=== PATIENT | male | born 1980 | race African-American/Black ===

== ENCOUNTER 2017-08-18 10:08 | Emergency (ER) | payer SELFPAY ==
[~2017-08-18] VITALS: Ht 182.9 cm; Wt 75.0 kg
[2017-08-18 10:11] VITALS: BP 122/62; PULSE 78; RESP 14; TEMP 98.4; O2SAT 99
[2017-08-18] MEDS ORDERED: BACT800T5 PO (10:39)
--- NOTE | 2017-08-18 10:46 | PD ---
HPI Chief Complaint: Injury Time Seen by Provider: 10:26 Travel History International Travel<30 days: No Contact w/Intl Traveler<30days: No Traveled to known affect area: No History of Present Illness HPI This patient complains of a infected area on the top of his left foot. Duration 3 days. Severity is moderate. He denies fever. No alleviating factors. PFSH Past Medical History Hx Anticoagulant Therapy: No Cardiovascular Problems: No Chemotherapy: No Cerebrovascular Accident: No Diabetes: No Diminished Hearing: No Respiratory: No Social History Alcohol Use: No Tobacco Use: Yes Substance Use: No Allergies-Medications (Allergen,Severity, Reaction): Coded Allergies: grapefruit (Unverified Allergy, Severe, JUICE CASES RASH, 07/03/17) Reported Meds & Prescriptions Reported Meds & Active Scripts Active Bactrim DS (Sulfamethoxazole-Trimethoprim) 800-160 Mg Tab 1 Tab PO BID Review of Systems General / Constitutional: No: Fever HENT: No: Headaches Cardiovascular: No: Chest Pain or Discomfort Respiratory: No: Cough Physical Exam Narrative SKIN: Focused skin assessment reveals no rash or ulcers. Skin is warm and dry. Palpation shows no induration or nodules. Psych: Normal mood and affect. Normal insight and judgment. Left foot: On the dorsum of the foot near the metatarsal head region is a large blister. It's intact. It seems to be mostly serous fluid but there is a central yellowish more firm area. Data Data Last Documented VS Vital Signs Date Time Temp Pulse Resp B/P (MAP) Pulse Ox O2 Delivery O2 Flow Rate FiO2 08/18/17 10:11 98.4 78 14 122/62 (82) 99 Orders Orders Wound Culture And Gram Stain (08/18/17 10:40) [facility] Medical Decision Making Medical Screen Exam Complete: Yes Emergency Medical Condition: Yes Medical Record Reviewed: Yes Differential Diagnosis Infected blister, boil, abscess, epidermoid cyst Narrative Course I have reviewed the patient's electronic medical record Procedure note: Patient gives verbal consent for incision and drainage procedure. We reviewed yes and the risks benefits and alternatives. I incised the blister and drained out the serous fluid. Only after clearing out the surrounding fluid true diagnosis becomes obvious He has an obvious infected/inflamed epidermoid cyst I incise that as well and drained out yellow pus. I obtained a wound culture and Gram stain. I milked out all the pus from the cyst cavity. He tolerated this well I advised him that has significant potential to recur over time if he does not follow-up with dermatology or plastic surgery to have the lining shelled out. Given the active infection I've given him one week of Bactrim DS on prescription Stable for outpatient follow-up Diagnosis Primary Impression: Infected epidermoid cyst Additional Impression: Encounter for incision and drainage procedure Additional Instructions: The patient was advised to follow up with their physician and return if they worsen. Med/Other Pt SpecificInfo: Prescription(s) given Scripts Sulfamethoxazole-Trimethoprim (Bactrim DS) 800-160 Mg Tab 1 TAB PO BID for Infection, #14 TAB 0 Refills Prov: Godfrey Malik MD 08/18/17 Disposition: 01 DISCHARGE HOME Condition: Stable Godfrey Malik MD Aug 18, 2017 10:45
== END 2017-08-18 10:58 | disposition home or self-care (01) ==
LOC: NEPD 10:08
DX: L72.0 Epidermal cyst (principal); A49.02 Methicillin resistant Staphylococcus aureus infection, unspecified site
CPT/HCPCS: 10060; 86403; 87070; 87186; 99283

== ENCOUNTER 2017-11-25 11:59 | Emergency (ER) | payer SELFPAY ==
[~2017-11-25] VITALS: Ht 185.4 cm; Wt 70.5 kg
[~2017-11-25 11:59] MED LIST: BACT800T5 PO
[2017-11-25 12:00] VITALS: BP 134/81; PULSE 88; RESP 16; TEMP 97.6; O2SAT 98
[2017-11-25] MEDS ORDERED: BACT800T5 PO (12:28)
[2017-11-25] MEDS ORDERED: IBUP1TAB7 PO (12:28)
[2017-11-25] MEDS ORDERED: CEPH-460 PO (12:28)
--- NOTE | 2017-11-25 12:29 | PD ---
HPI Chief Complaint: Skin Problem Time Seen by Provider: 12:20 Travel History International Travel<30 days: No Contact w/Intl Traveler<30days: No Traveled to known affect area: No History of Present Illness HPI 37-year-old male presents to the emergency Department with complaint of a bug bite to his left buttocks that he noticed today. He said it wasn't there yesterday. He is also concerned of bites to his right spain that he noticed in the past few days. Denies fever, vomiting. Rates the pain 4/10. She describes it as a pressure. Has not taken any medication or treatment to alleviate symptoms. No primary care provider. Denies significant past medical history. Allergies to grapefruit. Has no other medical complaints. No other modifying factors or associated signs and symptoms. PFSH Past Medical History Medical History: Denies Significant Hx Hx Anticoagulant Therapy: No Cardiovascular Problems: No Chemotherapy: No Cerebrovascular Accident: No Diabetes: No Diminished Hearing: No Respiratory: No Immunizations Current: Yes Tetanus Vaccination: > 5 Years Influenza Vaccination: No Past Surgical History Surgical History: No Previous Surgery Social History Alcohol Use: No Tobacco Use: Yes Substance Use: No Allergies-Medications (Allergen,Severity, Reaction): Coded Allergies: grapefruit (Unverified Allergy, Severe, JUICE CASES RASH, 11/25/17) Reported Meds & Prescriptions Reported Meds & Active Scripts Active Ibuprofen 800 Mg Tab 800 Mg PO Q6HR PRN Bactrim DS (Sulfamethoxazole-Trimethoprim) 800-160 Mg Tab 1 Tab PO BID 10 Days Keflex (Cephalexin) 500 Mg Cap 500 Mg PO Q6H 10 Days Review of Systems Except as stated in HPI: all other systems reviewed are Neg Physical Exam Narrative GENERAL: Well-nourished, well-developed black male patient, in no acute distress ; afebrile, nontoxic-appearing SKIN: There is an indurated area to the left buttocks which measures about 2 cm in diameter. It is nonfluctuant and there is no pointing or drainage. There is no zone of inflammation around it. Small area to right spain that appears to be 2 cuts and/or scrapes; they're without drainage, erythema, edema and without signs of infection. HEAD: Atraumatic. Normocephalic. EYES: Pupils equal and round. No scleral icterus. No injection or drainage. ENT: Mucosa pink and moist. Airway patent. NECK: Trachea midline. CARDIOVASCULAR: Regular rate. RESPIRATORY: No accessory muscle use. GASTROINTESTINAL: Flat. MUSCULOSKELETAL: No obvious deformities. No clubbing. No cyanosis. No edema. NEUROLOGICAL: Awake and alert. Oriented 3. No obvious cranial nerve deficits. Motor grossly within normal limits. Normal speech. PSYCHIATRIC: Appropriate mood and affect; insight and judgment normal. Data Data Last Documented VS Vital Signs Date Time Temp Pulse Resp B/P (MAP) Pulse Ox O2 Delivery O2 Flow Rate FiO2 11/25/17 12:00 97.6 88 16 134/81 (98) 98 Orders Orders Ed Discharge Order (11/25/17 12:29) [facility] Medical Decision Making Medical Screen Exam Complete: Yes Emergency Medical Condition: Yes Medical Record Reviewed: Yes Differential Diagnosis Abscess, cellulitis, folliculitis Narrative Course 37-year-old male with left buttock cellulitis. The area is nonfluctuant and not ready for I&D. I will prescribe the patient antibiotics and discussed reasons for the patient to return to the emergency department for I&D if needed. Bactrim, Keflex, ibuprofen prescribed for home. Instructed patient to follow up with primary care provider. Patient verbalizes understanding and agreement with treatment plan. Patient is medically cleared and stable for discharge. Discussed reasons to return to the emergency department. Patient agrees with treatment plan. The patients vital signs are stable and the patient is stable for outpatient follow-up and treatment. Patient discharged home, stable and in no acute distress. Diagnosis Primary Impression: Cellulitis of left buttock Referrals: [facility] Primary Care Physician Patient Instructions: Abscess (ED), Cellulitis (ED), General Instructions Additional Instructions: Complete full course of antibiotics Warm compresses to the affected area Keep area clean and dry Ibuprofen or Tylenol as directed and as needed for pain and inflammation Return to the emergency department for incision and drainage of the area if worsening and needed Follow-up with primary care provider Return to emergency department immediately with worsening of symptoms Med/Other Pt SpecificInfo: Prescription(s) given Scripts Ibuprofen (Ibuprofen) 800 Mg Tab 800 MG PO Q6HR Y for PAIN, #20 TAB 0 Refills Prov: Yvrose Hoffman 11/25/17 Sulfamethoxazole-Trimethoprim (Bactrim DS) 800-160 Mg Tab 1 TAB PO BID for Infection for 10 Days, #20 TAB 0 Refills Prov: Yvrose Hoffman 11/25/17 Cephalexin (Keflex) 500 Mg Cap 500 MG PO Q6H for Infection for 10 Days, #40 CAP 0 Refills Prov: Yvrose Hoffman 11/25/17 Disposition: 01 DISCHARGE HOME Condition: Stable Yvrose Hoffman Nov 25, 2017 12:28
== END 2017-11-25 12:55 | disposition home or self-care (01) ==
LOC: NEPD 11:59
DX: L03.317 Cellulitis of buttock (principal); Z72.0 Tobacco use
CPT/HCPCS: 99283